=== PATIENT | female | born 1970 | race Caucasian/White ===

== ENCOUNTER 2019-08-30 17:56 | Emergency (ER) | payer OTHER, SELFPAY ==
--- NOTE | ~2019-08-30 | CT_ITS ---
EXAMINATION: CT brain wo con DATE: 08/30/2019 19:27 INDICATION: Confusion. TECHNIQUE: Computed tomography (CT) of the head was performed without intravenous contrast. The mA wa s adjusted according to patient size. Iterative reconstruction technique was employed. The dose-lengt h product was 1210.67 mGy-cm. COMPARISON: None FINDINGS: Motion artifact is noted. There is no intracranial hemorrhage, acute infarction, or abnorma l intracranial mass lesion. The ventricles are normal in size. The paranasal sinuses are clear. The m astoid air cells are normal. The orbits are normal. There is left posterior scalp soft tissue swellin g. IMPRESSION: 1. Normal brain. Reviewed, dictated and finalized at location A. IMPRESSION: 1. Normal brain.
--- NOTE | ~2019-08-30 | CT_ITS ---
EXAMINATION: CT cervical spine wo con DATE: 08/30/2019 19:27 INDICATION: Head injury. TECHNIQUE: Computed tomography (CT) of the cervical spine was performed without intravenous contrast. Automated exposure control and iterative reconstruction technique were employed. The dose-length pro duct was 408.62 mGy-cm. COMPARISON: None FINDINGS: There is 4 degrees dextrocurvature of cervical spine. There is kyphosis of cervical spine. Vertebral body heights are normal. There is mildly decreased disc height at C4-C5 and C5-C6. The fol lowing disc levels are specifically discussed: C2-C3: There is no uncovertebral joint osteoarthritis. There is no facet joint osteoarthritis. There is no neural foraminal stenosis. There is no central canal stenosis. C3-C4: There is mild right uncovertebral joint osteoarthritis. There is no facet joint osteoarthritis . There is no neural foraminal stenosis. There is no central canal stenosis. C4-C5: There is moderate bilateral uncovertebral joint osteoarthritis. There is no facet joint osteoa rthritis. There is mild bilateral neural foraminal stenosis. There is mild central canal stenosis. C5-C6: There is mild bilateral uncovertebral joint osteoarthritis. There is mild bilateral facet join t osteoarthritis. There is mild left neural foraminal stenosis. There is mild central canal stenosis. C6-C7: There is no uncovertebral joint osteoarthritis. There is mild right facet joint osteoarthritis . There is no neural foraminal stenosis. There is no central canal stenosis. C7-T1: There is no uncovertebral joint osteoarthritis. There is severe bilateral facet joint osteoart hritis. There is mild bilateral neural foraminal stenosis. There is no central canal stenosis. IMPRESSION: 1. No fracture. 2. Mild cervical spondylosis. Reviewed, dictated and finalized at location A.
--- NOTE | ~2019-08-30 | CT_ITS ---
EXAMINATION: CT lumbar spine wo con DATE: 08/30/2019 19:27 INDICATION: Low back injury. Fall. TECHNIQUE: Computed tomography (CT) of the lumbar spine was performed without intravenous contrast. A utomated exposure control and iterative reconstruction technique were employed. The dose-length produ ct was 1022.81 mGy-cm. COMPARISON: None FINDINGS: There is 10 degrees levoscoliosis of lumbar spine. Vertebral body heights are normal. There is mildly decreased disc height at L1-L2. The following disc levels are specifically discussed: L1-L2: The disc is bulging. There is mild bilateral facet joint osteoarthritis. There is mild bilater al neural foraminal stenosis. There is mild central canal stenosis. L2-L3: The disc does not extend beyond the endplate margin. There is mild bilateral facet joint osteo arthritis. There is no neural foraminal stenosis. There is no central canal stenosis. L3-L4: The disc is bulging. There is severe right and moderate left facet joint osteoarthritis. There is mild bilateral neural foraminal stenosis. There is no central canal stenosis. L4-L5: The disc is bulging. There is severe bilateral facet joint osteoarthritis. There is mild bilat eral neural foraminal stenosis. There is mild central canal stenosis. L5-S1: The disc does not extend beyond the endplate margin. There is severe right and moderate left f acet joint osteoarthritis. There is no neural foraminal stenosis. There is no central canal stenosis. IMPRESSION: 1. No fracture. 2. Mild lumbar spondylosis. Reviewed, dictated and finalized at location A.
--- NOTE | ~2019-08-30 | XR_ITS ---
EXAMINATION: XR chest 1V portable DATE: 08/30/2019 19:37 INDICATION: Fall. Head injury. TECHNIQUE: A single frontal view of the chest was obtained. COMPARISON: None. FINDINGS: The chest demonstrates clear lungs without pneumonia, pleural effusion, or pneumothorax. Th e heart size is normal. IMPRESSION: 1. No acute cardiopulmonary disease. Reviewed, dictated and finalized at location A.
--- NOTE | 2019-08-30 18:03 | ECG_ITS ---
Measurements Intervals [place] Rate: 89 P: 60 MN: 146 QRS: 33 QRSD: 80 T: 51 QT: 354 QTc: 432 Interpretive Statements SINUS RHYTHM LOW QRS VOLTAGE IN PRECORDIAL LEADS CANNOT RULE OUT SEPTAL INFARCT, AGE INDETERMINATE ABNORMAL ECG Electronically Signed On 08-31-2019 6:58:54 CDT by Shabbir Jj D.O.
--- NOTE | 2019-08-30 18:05 | ED.ABDPAIN ---
HPI - Abdominal Pain General Chief Complaint: Fall Stated Complaint: FALL Time Seen by Provider: 08/30/19 17:56 Source: patient Mode of arrival: EMS Limitations: intoxication History of Present Illness HPI narrative: Patient is a 49-year-old female who presents per EMS after being found behind a store on the ground with bleeding from the scalp having sustained a fall patient is unsure as to the etiology of fall or whether she lost consciousness patient. Patient presents with laceration to the posterior scalp. Patient notes mild neck pain. Patient denies any headache lightheadedness dizziness. Patient on arrival in the room in no distress and notes that she had been consuming alcohol today noting that she was drinking beer. Related Data Allergies Allergy/AdvReac Type Severity Reaction Status Date / Time codeine AdvReac Migraine Verified 08/30/19 18:30 Penicillins AdvReac Migraine Verified 08/30/19 18:30 Review of Systems Review of Systems: Narrative: Patient's review of systems somewhat limited by her history of alcohol use All systems reviewed & are unremarkable except as noted in HPI and below PMFSH Past Medical History Medical History (Updated 08/30/19 @ 21:28 by Dave Figueroa PA-C) Above knee amputation of left lower extremity Alcohol abuse Bipolar disorder Traumatic brain injury Social History Social History (Updated 08/30/19 @ 18:07 by Dave Figueroa PA-C) Smoking status: Current every day smoker Gender identity (if verbalized by the patient): Female Exam Narrative: Exam Narrative: GENERAL: Well-appearing, well-nourished, and in no acute distress. HEAD: Normocephalic, linear superficial posterior scalp laceration with hematoma EYES: PERRLA and EOMI. ENT: Nares clear, no rhinorrhea or epistaxis. Mucous membranes moist. Oropharynx without tonsillar hypertrophy exudate or other lesions. NECK: Supple. No adenopathy or masses. CHEST: Clear to auscultation. No respiratory distress. No wheezes rales or rhonchi HEART: Regular rate and rhythm. No murmur heard. Normal peripheral pulses. ABDOMEN: Soft, nontender, nondistended EXTREMITIES: Normal range of motion. No edema. Midline cervical tenderness no thoracic tenderness midline lumbar tenderness SKIN: Warm, dry, no rash. NEURO: No focal deficits. Alert and oriented x3. GCS of 15. Cranial nerves II through XII grossly intact. Patient able to ambulate PSYCH: Normal mood and affect. Procedures Laceration Laceration 1: Date: 08/30/19 Time: 21:16 Site: scalp Size (cm): 2 Description: linear Pre-repair: wound explored and irrigated ====== Skin Level ====== Skin layer closed with: kaylah Number of sutures: 2 ====== Subcutaneous Layer ====== ====== Muscle Layer ====== ====== Tendon Layer ====== Course Course Emergency Course: Patient in the room in no distress aware of case findings treatment plan and diagnosis agreeing to follow-up as directed Vital Signs Vital signs: Vital Signs Temperature 97.5 F L 08/30/19 18:14 Pulse Rate 94 08/30/19 18:14 Respiratory Rate 18 08/30/19 18:14 Blood Pressure 123/76 08/30/19 18:14 Pulse Oximetry 98 08/30/19 18:14 Temperature 97.5 F L 08/30/19 18:14 Pulse Rate 94 08/30/19 18:14 Respiratory Rate 18 08/30/19 18:14 Blood Pressure 123/76 08/30/19 18:14 Pulse Oximetry 98 08/30/19 18:14 MDM - Abdominal Pain MDM Narrative Medical decision making narrative: Patient in the room no high risk changes in the blood work or imaging felt appropriate for outpatient reevaluation patient will attempt to have someone come get her to get her home patient no high risk changes in the blood work or imaging hemodynamically stable. Patient had kaylah placed in the scalp. Patient has been able to ambulate without difficulty Lab Data Result diagrams: 08/30/19 18:27 08/30/19 18:27 Labs:
[2019-08-30 18:14] VITALS: BP 123/76; PULSE 94; RESP 18; TEMP 36.4; O2SAT 98
[2019-08-30 18:34] LABS: Basophils Absolute Auto 0.1 K/mm3 (0.0-0.1); Basophils Percent Auto 0.6 % (0.2-1.2); Eosinophils Absolute Auto 0.2 K/mm3 (0-0.3); Eosinophils Percent Auto 2.5 % (0-4.4); Hematocrit 41.8 % (37.0-47.0); Hemoglobin 13.9 g/dL (12.0-15.0); Immature Granulocyte Absolute 0.03 K/mm3 (0.00-0.031); Immature Granulocyte Percent A 0.3 % (0-0.5); Lymphocytes Absolute Auto 2.54 K/mm3 (0.9-3.2); Lymphocytes Percent Auto 27.4 % (18.3-44.2); Mean Corpuscular HGB Conc 33.3 g/dl (32-36); Mean Corpuscular Hemoglobin 32.2 pg (26-34); Mean Corpuscular Volume 96.8 fl (80-100); Mean Platelet Volume 9.9 fl (7.4-10.4); Monocytes Absolute Auto 0.7 K/mm3 (0.1-0.6); Monocytes Percent Auto 7.6 % (2.6-8.5); Neutrophils Absolute Auto 5.7 K/mm3 (1.3-6.7); Neutrophils Percent Auto 61.6 % (45.5-73.1); Platelet Count Result 219 k/mm3 (150-375); Red Blood Count 4.32 M/mm3 (4.2-5.4); Red Cell Distribution Width 13.8 % (11.5-14.5); White Blood Count 9.3 K/mm3 (4.5-10.0)
[2019-08-30] MEDS: FAMOTIDINE 20 MG/2 ML VIAL IV PUSH (18:37)
[2019-08-30] MEDS: SODIUM CHLORIDE 0.9% IV 1,000 ML 999 ML IV CONT (18:38)
[2019-08-30 18:48] LABS: Alanine Aminotransferase 17 U/L (4-35); Albumin Level 4.3 g/dL (3.5-5.1); Alkaline Phosphatase 88 U/L (38-126); Aspartate Amino Transferase 27 U/L (14-36); Bilirubin,Total 0.3 mg/dL (0.2-1.3); Blood Urea Nitrogen 17 mg/dL (7-17); Calcium 9.3 mg/dL (8.4-10.2); Carbon Dioxide 21 mmol/L (22-30); Chloride 110 mmol/L (98-107); Estimated CRCL calculation 83 ml/min; Estimated Glomerular Filt Rate > 60; Glucose 112 mg/dL (65-105); Lipase 214 U/L (23-300); Potassium 3.7 mmol/L (3.4-5.0); Sodium 138 mmol/L (137-145)
[2019-08-30 18:59] LABS: Troponin I < 0.012 ng/mL (0.000-0.034)
[2019-08-30] MEDS: TETANUS,DIPHTHERIA,AC PERTUSSIS ADULT (0.5 ML) BOOSTRIX IM (18:59)
[2019-08-30 19:37] LABS: Add Urine Microscopic? NO; Appearance Urine Clear (Clear); Bilirubin Urine Negative (Negative); Blood Urine Negative (Negative); Color Urine Colorless (Yellow); Glucose Urine UA Negative (Negative); Ketones Urine Negative (Negative); Leukocyte Esterase Ur Negative LEU/UL (Negative); Nitrate Urine Negative (Negative); Protein Urine Negative (Negative); Specific Grav Ur 1.005 (1.001-1.035); Urobilinogen Urine Negative mg/dL (<2.0)
== END 2019-08-30 21:52 | disposition home or self-care (01) ==
PROVIDERS: Emergency Medicine Emergency Medical Services; Emergency Provider Emergency Medicine
DX: S01.01XA Laceration without foreign body of scalp, initial encounter (principal); Z89.612 Acquired absence of left leg above knee; F17.200 Nicotine dependence, unspecified, uncomplicated; Z87.820 Personal history of traumatic brain injury; M47.812 Spondylosis without myelopathy or radiculopathy, cervical region; M47.816 Spondylosis without myelopathy or radiculopathy, lumbar region; Z23 Encounter for immunization; W19.XXXA Unspecified fall, initial encounter
CPT/HCPCS: 12001; 36415; 70450; 71045; 72125; 72131; 80053; 81003; 83690; 84484; 85025; 90471; 90715; 93005; 96361; 96374; 96375; 99284; J0131; J7030